=== PATIENT | male | born 1955 | race American Indian/Alaskan Native ===

== ENCOUNTER 2018-10-14 08:40 | Emergency (ER) | payer MEDICAID ==
[2018-10-14] MEDS ORDERED: BRETHINE SUB-Q ONE (09:09)
--- NOTE | 2018-10-14 09:15 | Emergency Department Report ---
ED General Adult HPI - General Chief complaint: Chest Pain Stated complaint: CHEST PAIN/CATINA Time Seen by Provider: 10/14/18 08:56 Source: patient Mode of arrival: Ambulatory Limitations: No Limitations - History of Present Illness Initial comments: Patient is 63 years old male with no significant past medical history except for erectile dysfunction for which he is taking. Patient stated that he injected himself twice this morning and now presented to the ER with a priapism for the last 2 hours. Patient also added to triage nurse that he is having chest pain and shortness of breath. Patient stated that his chest pain and shortness of breath is related to his priapism. Patient denied any fever or chills. Severity scale (0 -10): 10 - Related Data Allergies Allergy/AdvReac Type Severity Reaction Status Date / Time ibuprofen [From Advil] Allergy Hives Verified 10/14/18 08:43 ED Review of Systems ROS: Stated complaint: CHEST PAIN/CATINA Other details as noted in HPI Comment: All other systems reviewed and negative Constitutional: denies: chills, fever Respiratory: shortness of breath. denies: cough, orthopnea Cardiovascular: chest pain Gastrointestinal: denies: abdominal pain, nausea, vomiting Neurological: denies: headache ED Past Medical Hx - Past Medical History Hx Hypertension: Yes Hx Diabetes: Yes - Surgical History Additional Surgical History: Pranav Shoulder - Social History Smoking Status: Never Smoker Substance Use Type: None ED Physical Exam - General Limitations: No Limitations General appearance: alert, in no apparent distress, anxious - Head Head exam: Present: atraumatic, normocephalic, normal inspection - Eye Eye exam: Present: normal appearance - ENT ENT exam: Present: normal exam, normal orophraynx, mucous membranes moist - Neck Neck exam: Present: normal inspection, full ROM. Absent: tenderness, meningismus, lymphadenopathy, thyromegaly - Respiratory Respiratory exam: Present: normal lung sounds bilaterally - Cardiovascular Cardiovascular Exam: Present: regular rate, normal rhythm, normal heart sounds - GI/Abdominal GI/Abdominal exam: Present: soft, normal bowel sounds. Absent: distended, tenderness, guarding, rebound, rigid - exam: Present: other (Priapism). Absent: testicular tenderness, urethral discharge, scrotal swelling, vertical testicular lie, circumcision External exam: Absent: erythema, swelling, lesions, lacerations, ecchymosis, bleeding - Extremities Exam Extremities exam: Present: normal inspection - Neurological Exam Neurological exam: Present: alert, oriented X3, CN II-XII intact, normal gait - Skin Skin exam: Present: warm, intact, normal color ED Course Vital Signs 10/14/18 08:47 Temperature 97.5 F L Pulse Rate 100 H Respiratory 18 Rate Blood Pressure 132/88 O2 Sat by Pulse 99 Oximetry - Procedure Description Procedures done: Aspiration of priapism - Nerve Block Consent Obtained: written consent Time Out Performed: Yes Local Anesthetic Used: Lidocaine 2% Nerve Blocks: other ( pudendal nerve) Procedure Successful: Yes Complications: none Patient Tolerated Procedure: well, no complications ED Medical Decision Making - Lab Data Result diagrams: 10/14/18 09:23 10/14/18 09:23 - EKG Data -: EKG Interpreted by Me EKG shows normal: sinus rhythm Rate: normal - EKG Data Interpretation: no acute changes - Radiology Data Radiology results: report reviewed Chest x-ray is negative for acute finding. - Medical Decision Making Patient is 63 years old male with no significant past medical history except for erectile dysfunction for which he is taking. Patient stated that he injected himself twice this morning and now presented to the ER with a priapism for the last 2 hours. Patient also added to triage nurse that he is having chest pain and shortness of breath. Patient stated that his chest pain and shortness of breath is related to his priapism. Patient denied any fever or chills. Started with his medical therapy for this including terbutaline subcutaneous, pseudoephedrine tablets and one 20 mg with no improvement. Under aseptic technique, I aspirated 144 ml of blood. Patient stated that he is feeling much better. No evidence of priapism anymore. Patient observed in the emergency room after the procedure, no complications. Critical care attestation.: If time is entered above; I have spent that time in minutes in the direct care of this critically ill patient, excluding procedure time. ED Disposition Clinical Impression: Chest pain, Priapism Disposition: -01 TO HOME OR SELFCARE Is pt being admited?: No Condition: Stable Instructions: Chest Pain (ED), Priapism (ED) Referrals: OBINNA ROLLE MD [Staff Physician] - 3-5 Days
--- NOTE | 2018-10-14 09:33 | XRay Report ---
PROCEDURE: XR CHEST 1V AP TECHNIQUE: Single frontal view of the chest HISTORY: Chest Pain COMPARISONS: None. FINDINGS: The cardiomediastinal silhouette is normal in appearance. The lungs are clear without focal consolidation. No pleural effusion or pneumothorax. No acute bony or soft tissue abnormality. IMPRESSION: No acute cardiopulmonary disease. This document is electronically signed by Lana Cabral MD., October 14 2018 09:31:56 AM ET
[2018-10-14 09:34] LABS: Eosinophils # (Auto) 0.1 K/mm3 (0.0-0.4); Eosinophils % (Auto) 1.2 % (0.0-4.3); Hematocrit 34.8 % (35.5-45.6); Hemoglobin 12.1 gm/dl (11.8-15.2); Lymphocytes # (Auto) 1.8 K/mm3 (1.2-5.4); Lymphocytes % (Auto) 40.3 % (13.4-35.0); Mean Corpuscular HGB Conc 35 % (32-34); Mean Corpuscular Volume 96 fl (84-94); Monocytes # (Auto) 0.4 K/mm3 (0.0-0.8); Monocytes % (Auto) 8.4 % (0.0-7.3); Platelet Count 372 K/mm3 (140-440); Red Blood Count 3.63 M/mm3 (3.65-5.03); Red Cell Distribution Width 13.2 % (13.2-15.2)
[2018-10-14 09:56] LABS: BUN/Creatinine Ratio 14; Blood Urea Nitrogen 15 mg/dL (9-20); Calcium 9.1 mg/dL (8.4-10.2); Hemolysis Index 20
[2018-10-14] MEDS ORDERED: SUDAFED PO ONE ×2 (10:00)
[2018-10-14] MEDS ORDERED: NEO SYNEPHRINE/NS Syringe(OR USE) IV ONE (10:00)
[2018-10-14] MEDS ORDERED: XYLOCAINE 2% INFILTRATI ONE ×2 (10:41→10:42)
[2018-10-14 12:42] VITALS: BP 112/80
== END 2018-10-14 12:15 | disposition home or self-care (01) ==
LOC: ED 08:40
DX: N48.30 Priapism, unspecified (principal); R07.89 Other chest pain; I10 Essential (primary) hypertension; E11.9 Type 2 diabetes mellitus without complications; Z88.5 Allergy status to narcotic agent
CPT/HCPCS: 36415; 54220; 71045; 80048; 84484; 85025; 93005; 93010; 96372; 99284; J3105; J2370

== ENCOUNTER 2019-05-21 09:23 | Observation (INO) | payer MEDICAID ==
[2019-05-21 10:00] LABS: Eosinophils # (Auto) 0.2 K/mm3 (0.0-0.4); Eosinophils % (Auto) 3.4 % (0.0-4.3); Hematocrit 37.5 % (35.5-45.6); Hemoglobin 12.8 gm/dl (11.8-15.2); Lymphocytes # (Auto) 2.3 K/mm3 (1.2-5.4); Lymphocytes % (Auto) 49.5 % (13.4-35.0); Mean Corpuscular HGB Conc 34 % (32-34); Mean Corpuscular Volume 95 fl (84-94); Monocytes # (Auto) 0.5 K/mm3 (0.0-0.8); Monocytes % (Auto) 10.5 % (0.0-7.3); Platelet Count 324 K/mm3 (140-440); Red Blood Count 3.96 M/mm3 (3.65-5.03); Red Cell Distribution Width 12.8 % (13.2-15.2)
[2019-05-21 10:11] LABS: INR 0.95 (0.87-1.13); Partial Thromboplastin Time 31.1 Sec. (24.2-36.6)
[2019-05-21 10:13] LABS: Thrombin Time 16.5 Sec. (15.1-19.6)
[2019-05-21 10:22] LABS: BUN/Creatinine Ratio 18; Blood Urea Nitrogen 21 mg/dL (9-20); Calcium 9.8 mg/dL (8.4-10.2); Hemolysis Index 5
--- NOTE | 2019-05-21 10:42 | Emergency Department Report ---
HPI - General Chief Complaint: Neuro Symptoms/Deficit Time Seen by Provider: 05/21/19 10:26 - HPI HPI: Room 5 Patient is a 63-year-old male presenting with the chief complaint of "mouth twisting." The patient states he noticed swelling to the right side of his mouth and left facial droop for the past 2 days. Patient states he's had dysarthria since yesterday. Patient denies numbness or weakness. ED Past Medical Hx - Past Medical History Previous Medical History?: Yes Hx Hypertension: Yes Hx Diabetes: Yes - Surgical History Past Surgical History?: Yes Additional Surgical History: Pranav Shoulder - Family History Family history: no significant - Social History Smoking Status: Current Every Day Smoker (1/2 pack per day) Substance Use Type: None (denies illicit drug use) - Medications Home Medications: Home Medications Medication Instructions Recorded Confirmed Last Taken Type ALPRAZolam [Alprazolam] 2 mg PO TID PRN 05/21/19 05/21/19 Unknown History ARIPiprazole [Abilify] 30 mg PO DAILY 05/21/19 05/21/19 Unknown History AtorvaSTATin [Lipitor] 40 mg PO QHS 05/21/19 05/21/19 Unknown History Loratadine [Claritin] 10 mg PO DAILY 05/21/19 05/21/19 Unknown History Metformin HCl [metFORMIN] 1,000 mg PO BID 05/21/19 05/21/19 Unknown History Montelukast Sodium [Singulair] 4 mg PO DAILY 05/21/19 05/21/19 Unknown History Omeprazole 40 mg PO BID 05/21/19 05/21/19 Unknown History Oxycodone HCl [roxiCODONE] 30 mg PO QID PRN 05/21/19 05/21/19 Unknown History Sertraline [Zoloft] 100 mg PO QDAY 05/21/19 05/21/19 Unknown History amLODIPine 10 mg PO QHS 05/21/19 05/21/19 Unknown History glipiZIDE [Glucotrol] 10 mg PO QHS 05/21/19 05/21/19 Unknown History hydroCHLOROthiazide [HCTZ] 25 mg PO QDAY 05/21/19 05/21/19 Unknown History risperiDONE [RisperDAL] 4 mg PO DAILY 05/21/19 05/21/19 Unknown History ED Review of Systems ROS: Stated complaint: MOUTH TWISTED Other details as noted in HPI Constitutional: weakness Eyes: denies: eye pain ENT: denies: throat pain Respiratory: no symptoms reported Cardiovascular: denies: chest pain Endocrine: no symptoms reported Gastrointestinal: denies: abdominal pain Genitourinary: denies: dysuria Musculoskeletal: denies: back pain Neurological: other (facial asymmetry) Physical Exam - Physical Exam Physical Exam: GENERAL: The patient is well-developed well-nourished male lying on stretcher not appearing to be in acute distress. Left facial droop present HEENT: Normocephalic. Atraumatic. Extraocular motions are intact. Patient has moist mucous membranes. NECK: Supple. Trachea midline CHEST/LUNGS: Clear to auscultation. There is no respiratory distress noted. HEART/CARDIOVASCULAR: Regular. There is no tachycardia. There is no gallop rub or murmur. ABDOMEN: Abdomen is soft, nontender. Patient has normal bowel sounds. There is no abdominal distention. SKIN: There is no rash. There is no edema. There is no diaphoresis. NEURO: The patient is awake, alert, and oriented. The patient is cooperative. The patient has a left facial droop. Otherwise cranial nerves II through XII grossly intact. Patient able to hold either arm 45 angle. Patient exhibits slight difficulty holding right lower extremity at 30 angle from the but he is able to prevent it from touching the ground. Patient able to hold left lower extremity at 30 angle for full 10 second count. The patient has normal speech and gait. NIHSS= 3 MUSCULOSKELETAL: There is no evidence of acute injury. ED Medical Decision Making - Lab Data Result diagrams: 05/21/19 09:47 05/21/19 09:47 - EKG Data -: EKG Interpreted by Me EKG shows normal: sinus rhythm Rate: normal - EKG Data When compared to previous EKG there are: previous EKG unavailable Interpretation: other (no ischemic changes seen) - Radiology Data Radiology results: report reviewed (CT head), image reviewed (CT head) [facility] [address] [place] [address] Cat Scan Report Signed Patient: REJI ROTHMAN MR#: [id number] : 1955 Acct:[id number] Age/Sex: 63 / M ADM Date: 05/21/19 Loc: ED Attending Dr: Nirav crook Physician: LATRICIA GOLDMAN MD Date of Service: 05/21/19 Procedure(s): CT head/brain wo con Accession Number(s): [id number] cc: LATRICIA GOLDMAN MD CT head without contrast INDICATION : neuro deficits <6hrs or sx present upon awakening. Right-sided weakness and facial droop since yesterday TECHNIQUE: Axial imaging performed from the skull apex through the skull base without the use of contrast. All CT scans at this location are performed using CT dose reduction for ALARA by means of automated exposure control. COMPARISON: None FINDINGS: Parenchyma: No acute intracranial hemorrhage or parenchymal abnormality. Ventricles: Ventricles are normal in size and appear symmetric. Soft tissues: Soft tissues including the orbits appear normal. Bones: No acute osseous abnormality. Sinuses: Sinuses and mastoid air cells are clear. IMPRESSION: No acute abnormality. Signer Name: Jan Dean MD Signed: 05/21/2019 11:25 AM Workstation Name: [id number] Transcribed By: JW Dictated By: Jan Dean MD Electronically Authenticated By: Jan Dean MD Signed Date/Time: 05/21/19 1125 DD/ 1124 TD/TT: - Differential Diagnosis CVA, Perez's palsy Critical care attestation.: If time is entered above; I have spent that time in minutes in the direct care of this critically ill patient, excluding procedure time. ED Disposition Clinical Impression: CVA (cerebral vascular accident) Disposition: 09 OP ADMIT IP TO THIS HOSP Is pt being admited?: Yes Does the pt Need Aspirin: Yes Condition: Fair Referrals: PRIMARY CARE,MD [Primary Care Provider] - 3-5 Days Time of Disposition: 11:58 (Hospitalist paged (Dr Ramirez))
--- NOTE | 2019-05-21 11:30 | Cat Scan Report ---
CT head without contrast INDICATION : neuro deficits <6hrs or sx present upon awakening. Right-sided weakness and facial droo p since yesterday TECHNIQUE: Axial imaging performed from the skull apex through the skull base without the use of con trast. All CT scans at this location are performed using CT dose reduction for ALARA by means of aut omated exposure control. COMPARISON: None FINDINGS: Parenchyma: No acute intracranial hemorrhage or parenchymal abnormality. Ventricles: Ventricles are normal in size and appear symmetric. Soft tissues: Soft tissues including the orbits appear normal. Bones: No acute osseous abnormality. Sinuses: Sinuses and mastoid air cells are clear. IMPRESSION: No acute abnormality. Signer Name: aJn Dean MD Signed: 05/21/2019 11:25 AM Workstation Name: [id number]
[2019-05-21] MEDS ORDERED: MORPHINE 4 MG/1 ML INJ IV ONE (11:47)
[2019-05-21] MEDS ORDERED: ONDANSETRON 4 MG/2 ML INJ IV ONE (11:48)
[2019-05-21] MEDS ORDERED: ASPIRIN 325 MG TAB PO ONE (11:59)
--- NOTE | 2019-05-21 12:00 | History and Physical Report ---
History of Present Illness Chief complaint: My mouth feels twisted History of present illness: 63 YO Male with Nicotine Dependence, Cervical DJD presents to ED for evaluation. Pt states that he has experienced Left side facial droop and difficulty speaking over the past 2 days with persistent symptoms over the same time frame. Pt states that his noticed the symptoms 2 days ago. Pt transported to [facility] via private vehicle. Pt seen and evaluated in ED and found to have focal neurologic deficit, but is outside therapeutic window for TPA. Pt denies fever, chills, CP, Palpitations, NVD, Trauma, Syncope, Dizziness, Skin Rash, or recent ill contacts. Pt placed in observation status and admitted to medical floor. N eurology consulted in ED. Pt initiated on CVA protocol. Past History Past Medical History: other (Cervical DJD) Past Surgical History: No surgical history, Other (reviewed) Social history: single, smoking Family history: hypertension Medications and Allergies Allergies Allergy/AdvReac Type Severity Reaction Status Date / Time gabapentin Allergy Unknown Verified 05/21/19 10:32 ibuprofen [From Advil] Allergy Hives Verified 10/14/18 08:43 Home Medications Medication Instructions Recorded Confirmed Last Taken Type ALPRAZolam [Alprazolam] 2 mg PO TID PRN 05/21/19 05/21/19 Unknown History ARIPiprazole [Abilify] 30 mg PO DAILY 05/21/19 05/21/19 Unknown History AtorvaSTATin [Lipitor] 40 mg PO QHS 05/21/19 05/21/19 Unknown History Loratadine [Claritin] 10 mg PO DAILY 05/21/19 05/21/19 Unknown History Metformin HCl [metFORMIN] 1,000 mg PO BID 05/21/19 05/21/19 Unknown History Montelukast Sodium [Singulair] 4 mg PO DAILY 05/21/19 05/21/19 Unknown History Omeprazole 40 mg PO BID 05/21/19 05/21/19 Unknown History Oxycodone HCl [roxiCODONE] 30 mg PO QID PRN 05/21/19 05/21/19 Unknown History Sertraline [Zoloft] 100 mg PO QDAY 05/21/19 05/21/19 Unknown History amLODIPine 10 mg PO QHS 05/21/19 05/21/19 Unknown History glipiZIDE [Glucotrol] 10 mg PO QHS 05/21/19 05/21/19 Unknown History hydroCHLOROthiazide [HCTZ] 25 mg PO QDAY 05/21/19 05/21/19 Unknown History risperiDONE [RisperDAL] 4 mg PO DAILY 05/21/19 05/21/19 Unknown History Review of Systems Constitutional: no weight loss, no weight gain, no fever, no chills Ears, nose, mouth and throat: no ear pain, no ear discharge, no tinnitis, no d ecreased hearing, no nose pain, no nasal congestion Cardiovascular: no chest pain, no orthopnea, no edema, no lightheadedness Respiratory: no cough, no excessive sputum, no hemoptysis, no shortness of breath Gastrointestinal: no nausea, no vomiting, no diarrhea, no constipation, no change in bowel habits Genitourinary Male: no hematuria, no flank pain, no urinary hesitancy, no nocturia, no incontinence Rectal: no pain, no incontinence, no bleeding Musculoskeletal: no neck stiffness, no neck pain, no shooting arm pain, no arm numbness/tingling, no leg numbness/tingling Integumentary: no rash, no pruritis, no redness, no sores, no wounds Neurological: lack of coordination, aphasia, change in speech, no transient paralysis, no paralysis, no parathesias, no numbness, no tingling Psychiatric: no anxiety, no change in sleep habits, no sleep disturbances, no hypersomnia, no change in appetite, no suicidal ideation, no disorientation Endocrine: no heat intolerance, no polyphagia, no excessive thirst, no polydipsia, no polyuria Hematologic/Lymphatic: no easy bruising, no easy bleeding, no lymphadenopathy, no lymphedema Allergic/Immunologic: no urticaria, no allergic rhinitis, no wheezing, no persistent infections, no anaphylaxis Exam - Constitutional Vitals: Temp Pulse Resp BP Pulse Ox 98.1 F 81 20 131/81 98 05/21/19 10:32 05/21/19 10:32 05/21/19 10:32 05/21/19 10:32 05/21/19 10:32 General appearance: Present: mild distress - EENT Eyes: Present: PERRL ENT: hearing intact, clear oral mucosa - Neck Neck: Present: supple, normal ROM - Respiratory Respiratory effort: normal Respiratory: bilateral: CTA - Cardiovascular Heart Sounds: Present: S1 & S2. Absent: rub, click - Extremities Extremities: pulses symmetrical, No edema Peripheral Pulses: within normal limits - Abdominal General gastrointestinal: Present: soft, non-tender, non-distended, normal bowel sounds Male genitourinary: Present: normal - Integumentary Integumentary: Present: clear, warm, dry - Musculoskeletal Musculoskeletal: left sided weakness - Psychiatric Psychiatric: appropriate mood/affect, intact judgment & insight - Neurologic Neurologic: CNII-XII intact, moves all extremities Results - Labs CBC & Chem 7: 05/21/19 09:47 05/21/19 09:47 Labs: Abnormal lab results 05/21/19 05/21/19 Range/Units 09:47 09:47 MCV 95 H (84-94) fl RDW 12.8 L (13.2-15.2) % Lymph % (Auto) 49.5 H (13.4-35.0) % [place] % (Auto) 10.5 H (0.0-7.3) % Seg Neutrophils % 35.6 L (40.0-70.0) % Seg Neutrophils # 1.6 L (1.8-7.7) K/mm3 BUN 21 H (9-20) mg/dL Glucose 221 H (75-100) mg/dL Assessment and Plan - Patient Problems (1) CVA (cerebral vascular accident) Current Visit: Yes Status: Acute Plan to address problem: CVA Protocol: CT Head, Neuro check, Carotid doppler, Seizure precautions, antiplatelet therapy, Echo, Neurology consulted, Further testing as per neurology team. (2) DJD (degenerative joint disease), cervical Current Visit: Yes Status: Acute Qualifiers: Spinal osteoarthritis complication: with radiculopathy Qualified Code(s): M47.22 - Other spondylosis with radiculopathy, cervical region Plan to address problem: supportive care, Physical therapy, Outpatient ortho/spine F/U care. (3) DVT prophylaxis Current Visit: Yes Status: Acute Plan to address problem: SCD to BLE while in bed, Pt ambulatory
[2019-05-21] MEDS ORDERED: ACETAMINOPHEN 325 MG TAB PO PRN (12:08)
[2019-05-21] MEDS ORDERED: MAGNESIUM HYDROXIDE (MOM) ORAL LIQD UDC PO PRN (12:08)
[2019-05-21] MEDS ORDERED: ONDANSETRON 4 MG/2 ML INJ IV PRN (12:08)
[2019-05-21] MEDS ORDERED: PROMETHAZINE 25 MG RECT SUPP PR PRN (12:08)
[2019-05-21] MEDS ORDERED: METOCLOPRAMIDE 10 MG TAB PO PRN (12:08)
[2019-05-21] MEDS ORDERED: DEXTROSE 50% IN WATER (25GM) 50 ML SYRINGE IV PRN (12:10)
--- NOTE | 2019-05-21 14:42 | Vascular Lab Report ---
"DUPLEX DOPPLER ULTRASOUND CAROTID, BILATERAL INDICATION: Stroke. Right sided weakness. COMPARISON: CT head without contrast performed earlier today. FINDINGS: RIGHT CAROTID: No significant atherosclerotic plaque. CCA velocity: 65.6 cm/sec. ICA peak systolic velocity: 67.5 cm/sec. ICA/CCA PSV Ratio: 1.03. Right Vertebral Artery: Antegrade flow. LEFT CAROTID: No significant atherosclerotic plaque. CCA velocity: 79.2 cm/sec. ICA peak systolic velocity: 70.5 cm/sec. ICA/CCA PSV Ratio: 0.9. Left Vertebral Artery: Antegrade flow. IMPRESSION: 1. Right Internal Carotid Artery: Normal. 2. Left Internal Carotid Artery: Normal. Velocity criteria are extrapolated from diameter data as defined by the Society of Radiologists in Ul trasound Consensus Conference, Radiology 2003; 229;340-346. Degree of || ICA PSV || Plaque || ICA/CCA Stenosis (%) || (cm/sec) || estimate (%) || PSV Ratio - Normal...............<125..............None.................<2.0 - <50....................<125..............<50....................<2.0 - 50-69................125-230.........>50....................2.0-4.0 - >70 but <100....>230..............>50....................>4.0 - Near...................High, low, .....visible................variable occlusion or none - Total...................None.............visible;................N/A occlusion no lumen Signer Name: Juan Funes MD Signed: 05/21/2019 2:37 PM Workstation Name: [id number]"
--- NOTE | 2019-05-21 17:38 | Consultation ---
History of Present Illness Consult date: 05/21/19 Chief complaint: left facial droop History of present illness: This is a 63 YO M who presented to the ED with left facial droop for several day s. Denied weakness or numbness. Also has trouble wrinkling forehead and closing left eye. Past History Past Medical History: other (Cervical DJD, diabetes) Past Surgical History: No surgical history, Other (reviewed) Social history: single, smoking Family history: hypertension Medications and Allergies Allergies Allergy/AdvReac Type Severity Reaction Status Date / Time gabapentin Allergy Unknown Verified 05/21/19 10:32 ibuprofen [From Advil] Allergy Hives Verified 10/14/18 08:43 Home Medications Medication Instructions Recorded Confirmed Last Taken Type ALPRAZolam [Alprazolam] 2 mg PO TID PRN 05/21/19 05/21/19 Unknown History ARIPiprazole [Abilify] 30 mg PO DAILY 05/21/19 05/21/19 Unknown History AtorvaSTATin [Lipitor] 40 mg PO QHS 05/21/19 05/21/19 Unknown History Loratadine [Claritin] 10 mg PO DAILY 05/21/19 05/21/19 Unknown History Metformin HCl [metFORMIN] 1,000 mg PO BID 05/21/19 05/21/19 Unknown History Montelukast Sodium [Singulair] 4 mg PO DAILY 05/21/19 05/21/19 Unknown History Omeprazole 40 mg PO BID 05/21/19 05/21/19 Unknown History Oxycodone HCl [roxiCODONE] 30 mg PO QID PRN 05/21/19 05/21/19 Unknown History Sertraline [Zoloft] 100 mg PO QDAY 05/21/19 05/21/19 Unknown History amLODIPine 10 mg PO QHS 05/21/19 05/21/19 Unknown History glipiZIDE [Glucotrol] 10 mg PO QHS 05/21/19 05/21/19 Unknown History hydroCHLOROthiazide [HCTZ] 25 mg PO QDAY 05/21/19 05/21/19 Unknown History risperiDONE [RisperDAL] 4 mg PO DAILY 05/21/19 05/21/19 Unknown History Active Meds: Active Medications Acetaminophen (Tylenol) 650 mg PO Q4H PRN PRN Reason: Pain, Mild (1-3) Bisacodyl (Dulcolax) 10 mg GA QDAY PRN PRN Reason: Constipation Dextrose (D50w (25gm) Syringe) 50 ml IV Q30MIN PRN; Protocol PRN Reason: Hypoglycemia Insulin Human Lispro (Humalog) 0 unit SUB-Q Q6HR VALERIY; Protocol Magnesium Hydroxide (Milk Of Magnesia) 30 ml PO Q4H PRN PRN Reason: Constipation Metoclopramide HCl (Reglan) 10 mg PO Q6H PRN PRN Reason: Nausea And Vomiting Ondansetron HCl (Zofran) 4 mg IV Q8H PRN PRN Reason: Nausea And Vomiting Pravastatin Sodium (Pravachol) 20 mg PO QHS VALERIY Promethazine HCl (Phenergan) 25 mg GA Q6H PRN PRN Reason: Nausea And Vomiting Sodium Chloride (Sodium Chloride Flush Syringe 10 Ml) 10 ml IV PRN PRN PRN Reason: LINE FLUSH Review of Systems Neurological: other (facial droop) Physical Examination - Vital Signs Vital Signs: Vital Signs Temp Pulse Resp BP Pulse Ox 98.1 F 81 20 131/81 98 05/21/19 10:32 05/21/19 10:32 05/21/19 10:32 05/21/19 10:32 05/21/19 10:32 - Constitutional General appearance: comfortable - EENT EENT: Present: PERRL, mucous membranes moist - Respiratory Respiratory: Present: lungs clear - Cardiovascular Cardiovascular: Present: regular rate - Gastrointestinal Gastrointestinal: Present: normoactive bowel sounds - Integumentary Integumentary: Present: normal - Neurologic Cranial nerve examination: PERRL, EOMI, V1/V2/V3 grossly intact, tongue midline, facial droop Speech examination: intact Sensorimotor examination: intact Detailed motor examination: grossly full strength in Motor examination - right side: 5/5: biceps, triceps, wrist flexion, wrist extension, mortgage accounting clerk, hip flexors, knee extensors, dorsiflexion, toe extension (EHL), plantarflexion Motor examination - left side: 5/5: biceps, triceps, wrist flexion, wrist extension, mortgage accounting clerk, hip flexors, knee extensors, dorsiflexion, toe extension (EHL), plantarflexion Incision: tenderness Reflexes: 1+: ankle, bicep, knee, tricep - Psychiatric Psychiatric: Present: mood/affect appropriate Results - Laboratory Findings CBC and BMP: 11/18/19 09:47 05/21/19 09:47 Abnormal Lab Findings: Abnormal Labs 05/21/19 05/21/19 05/21/19 09:47 09:47 13:59 MCV 95 H RDW 12.8 L Lymph % (Auto) 49.5 H [place] % (Auto) 10.5 H Seg Neutrophils % 35.6 L Seg Neutrophils # 1.6 L BUN 21 H Glucose 221 H POC Glucose 119 H - Diagnostic Findings Additional findings: CT head- chronic changes, nothing acute Assessment and Plan 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
[2019-05-21] MEDS: valACYclovir 500 MG TAB PO SCH (18:19)
[2019-05-21] MEDS: INSULIN LISPRO 100 UNIT/ML SUB-Q SCH ×2 (18:20→23:53)
[2019-05-21] MEDS ORDERED: PRAVASTATIN 20 MG TAB PO SCH (22:00)
[2019-05-21] MEDS ORDERED: glipiZIDE 10 MG TAB PO SCH (22:00)
[2019-05-21] MEDS: NICOTINE 14 MG/24 HR PATCH TD SCH (22:21)
[2019-05-22] MEDS ORDERED: INSULIN LISPRO 100 UNIT/ML SUB-Q SCH (07:30)
[2019-05-22] MEDS: NICOTINE 14 MG/24 HR PATCH TD SCH (09:37)
[2019-05-22] MEDS: valACYclovir 500 MG TAB PO SCH (09:37)
[2019-05-22] MEDS ORDERED: predniSONE 20 MG TAB PO SCH (10:00)
[2019-05-22] MEDS ORDERED: LORATADINE (NF) 10 MG TAB PO SCH (10:00)
[2019-05-22 11:20] LABS: Chol/HDL Ratio 3.94 %
[2019-05-22] MEDS ORDERED: FLU VACC QUAD 2019-20 (3 YR UP)/PF 60 MCG/0.5 ML SYRINGE IM ONE (12:00)
--- NOTE | 2019-05-22 12:11 | Discharge Summary ---
Providers - Providers Date of Admission: 05/21/19 12:08 Date of discharge: 05/22/19 Attending physician: VANESSA SIMON 05/21/19 11:21 Speech Therapy Evaluation and Treat [CONS] Routine Reason For Exam: failed bedside swallow 05/21/19 12:08 Occupational Therapy Evaluate and Treat [CONS] Routine Comment: Reason For Exam: Neuro deficits Physical Therapy Evaluation and Treat [CONS] Routine Comment: Reason For Exam: Neuro deficits 05/21/19 14:07 Consult to Physician [CONS] Routine Comment: Consulting Provider: REN TINAJERO Physician Instructions: Reason For Exam: CVA/[place] Palsy Primary care physician: FERMENTATION OPERATOR Hospitalization Condition: Stable Hospital course: Patient is a 63 YO Male with Nicotine Dependence, NIDDM and Cervical DJD Discharge Diagnoses: Ruled out CVA, Perez's palsy per Neurology DJD, pt showed me a picture of cervical spine in an attempt to obtain narcotic pain meds: return to his outpatient doctors for further care Chronic pain syndrome, he just received 120 tabs of oxycodone on 05/07/[address] Jesús Steiner Jr per [place] structurer aware. Disposition: DC-01 TO HOME OR SELFCARE Time spent for discharge: 33 minutes Core Measure Documentation - Palliative Care Palliative Care/ Comfort Measures: Not Applicable - Core Measures Any of the following diagnoses?: none - VTE Discharge Requirements Deep Vein Thrombosis/Pulmonary Embolism Present on Admission: No Has pt received <5 days of overlap therapy or INR<2.0: No Anticoagulant overlap therapy prescribed at discharge: No Contraindication No Overlap Therapy order at DC: Not Indicated Exam - Physical Exam Narrative exam: Gen: WDWN, NAD, Awake, Alert, Orientated HEENT: NCAT, EOMI, PERRL, OP Clear Neck: supple, no adenopathy, no thyromegaly, no JVD CVS/Heart: RRR, normal S1S2, pulses present bilaterally Chest/Lungs: CTA B, Symmetrical chest expansion, good air entry bilaterally GI/Abdomen: soft, NTND, good bowel sounds, no guarding or rebound /Bladder: no suprapubic tenderness, no CVA or paraspinal tenderness Extermity/Skin: no c/c/e, no obvious rash MSK: FROM x 4 Neuro: CN 2-12 grossly intact, no new focal deficits Psych: calm - Constitutional Vitals: Temp Pulse Resp BP Pulse Ox 97.7 F 86 20 124/79 96 05/22/19 04:31 05/22/19 04:31 05/22/19 11:08 05/22/19 04:31 05/22/19 11:08 Plan Activity: other (no strenous activity unless cleared by PCP) Diet: low salt, diabetic Special Instructions: record daily BP diary, record blood sugar diary Follow up with: REINA ESCOBAR MD [Staff Physician] - 7 Days [facility] [Provider Group] - 7 Days Prescriptions: predniSONE [Deltasone] 1 dose PO QDAY #64 tab valACYclovir [Valtrex] 2 tab PO TID 7 Days tab
[2019-05-22] MEDS ORDERED: valACYclovir 500 MG TAB PO SCH (14:00)
[2019-05-22 14:56] VITALS: BP 137/79
== END 2019-05-22 14:30 | disposition home or self-care (01) ==
LOC: ED 09:23 → 3A 12:08
PROVIDERS: ADMIT Internal Medicine; ATTEND Internal Medicine
DX: I63.9 Cerebral infarction, unspecified (principal); M47.22 Other spondylosis with radiculopathy, cervical region; I10 Essential (primary) hypertension; E11.9 Type 2 diabetes mellitus without complications; F17.210 Nicotine dependence, cigarettes, uncomplicated; Z71.6 Tobacco abuse counseling; Z79.84 Long term (current) use of oral hypoglycemic drugs; Z79.899 Other long term (current) drug therapy; Z88.8 Allergy status to other drugs, medicaments and biological substances
CPT/HCPCS: 36415; 70450; 80048; 80061; 82962; 84484; 85025; 85610; 85670; 85730; 92610; 93005; 93010; 93306; 93880; 96374; 96375; 99284; 99406; A9270; G0378; J2270; J2405; J7512; 90686

== ENCOUNTER 2019-06-06 16:11 | Emergency (ER) | payer MEDICAID ==
[2019-06-06 17:14] VITALS: BP 139/86
--- NOTE | 2019-06-06 17:22 | Emergency Department Report ---
Blank Doc - Documentation Documentation: 63-year-old male that stated symptoms of left eye pain. Patient was seen a few weeks ago and was diagnosed with [place] Palsy. Stated symptoms are the same and did not change but the only new symptom he has is the burning sensation to the left eye. Exam: Left facial drooping with trouble wrinkling forehead and closing left eye. Denies any headache. Denies any other symptoms. This initial assessment/diagnostic orders/clinical plan/treatment(s) is/are subject to change based on patient's health status, clinical progression and re- assessment by fellow clinical providers in the ED. Further treatment and workup at subsequent clinical providers discretion. Patient/guardians urged not to elope from the ED as their condition may be serious if not clinically assessed and managed. Initial orders include: 1- Patient sent to [facility] for further evaluation and treatment 2- visual testing
[2019-06-06] MEDS ORDERED: TETRACAINE 0.5% OPHTH SOLN 4ML OU PRN (19:58)
[2019-06-06] MEDS ORDERED: HYDROcodone/ACETAMINOPHEN 5-325 MG TAB PO ONE (19:58)
[2019-06-06] MEDS ORDERED: predniSONE 20 MG TAB PO ONE (20:00)
[2019-06-06] MEDS ORDERED: FLUORESCEIN 1 MG STRIP OP ONE ×2 (20:07→20:09)
--- NOTE | 2019-06-06 21:51 | Emergency Department Report ---
ED Eye Problem HPI - General Chief complaint: Eye Problems Stated complaint: DIFFICULTY CLOSING L EYE Time Seen by Provider: 06/06/19 17:12 Source: patient Mode of arrival: Ambulatory Limitations: No Limitations - History of Present Illness Initial comments: Patient is a 63-year-old -Maldivian male with a history of hypertension and hyperlipidemia presents to the ED with complaint of acute onset persistent left eye pain and left facial drooping for the last 2 weeks. Patient states that he was diagnosed with Palomino's palsy about 2 weeks ago and has been taking Valtrex for a week and 10 mg of prednisone daily for 1 week. Patient states that he completed these medications 1 week ago but the left eye pain has been persistent. Patient also states that he was evaluated by his dairy technologist who advised him to continue using his eyedrops to hydrate his eyes. Patient states that the left eye pain and itching has been persistent and that he still has left facial palsy. Patient denies dizziness, headache, vision loss, fever, chills, cough, headache, abdominal pain, chest pain or shortness of breath. MD chief complaint: eye pain (left ), other (left) -: Sudden, week(s) (2) Onset Description: sudden, other (diagnosed with Palomino's Palsy) Location: left eye Place: home If Injury: none Eye Symptoms: burning, pain, itching Severity: severe Severity scale (0 -10): 7 If Pain, Quality: sharp, burning, aching Consistency: constant Context: other (Palomino's palsy) Associated Symptoms: none. denies: headache, neck pain, nausea/vomiting, cough, rhinorrhea, fever, shortness of breath Treatments Prior to Arrival: OTC eye drops - Related Data Home Medications Medication Instructions Recorded Confirmed Last Taken ALPRAZolam [Alprazolam] 2 mg PO TID PRN 05/21/19 05/21/19 Unknown ARIPiprazole [Abilify] 30 mg PO DAILY 05/21/19 05/21/19 Unknown AtorvaSTATin [Lipitor] 40 mg PO QHS 05/21/19 05/21/19 Unknown Loratadine [Claritin] 10 mg PO DAILY 05/21/19 05/21/19 Unknown Metformin HCl [metFORMIN] 1,000 mg PO BID 05/21/19 05/21/19 Unknown Montelukast Sodium [Singulair] 4 mg PO DAILY 05/21/19 05/21/19 Unknown Omeprazole 40 mg PO BID 05/21/19 05/21/19 Unknown Oxycodone HCl [roxiCODONE] 30 mg PO QID PRN 05/21/19 05/21/19 Unknown Sertraline [Zoloft] 100 mg PO QDAY 05/21/19 05/21/19 Unknown amLODIPine 10 mg PO QHS 05/21/19 05/21/19 Unknown glipiZIDE [Glucotrol] 10 mg PO QHS 05/21/19 05/21/19 Unknown hydroCHLOROthiazide [HCTZ] 25 mg PO QDAY 05/21/19 05/21/19 Unknown risperiDONE [RisperDAL] 4 mg PO DAILY 05/21/19 05/21/19 Unknown Previous Rx's Medication Instructions Recorded Last Taken Type predniSONE [Deltasone] 1 dose PO QDAY #64 tab 05/22/19 Unknown Rx Prednisone [predniSONE 10 mg 10 mg PO .TAPER #21 tab.ds.pk 06/06/19 Unknown Rx (6-Day Pack, 21 Tabs)] traMADoL [Ultram] 50 mg PO Q6HR PRN #12 tablet 06/06/19 Unknown Rx valACYclovir [Valtrex] 2 tab PO Q8H 7 Days #42 tab 06/06/19 Unknown Rx Allergies Allergy/AdvReac Type Severity Reaction Status Date / Time gabapentin Allergy Unknown Verified 05/21/19 10:32 ibuprofen [From Advil] Allergy Hives Verified 10/14/18 08:43 ED Review of Systems ROS: Stated complaint: DIFFICULTY CLOSING L EYE Other details as noted in HPI Constitutional: denies: chills, fever Eyes: eye pain (left eye), eye discharge (Left eye tearing), other (left facial palsy). denies: vision change ENT: denies: ear pain, throat pain Respiratory: denies: cough, orthopnea, shortness of breath, SOB with exertion, SOB at rest, wheezing Cardiovascular: denies: chest pain, palpitations, dyspnea on exertion, syncope, paroxysmal nocturnal dyspnea Endocrine: no symptoms reported. denies: flushing, intolerance to cold Gastrointestinal: denies: abdominal pain, nausea, vomiting, diarrhea, constipation, hematemesis Genitourinary: denies: urgency, dysuria Musculoskeletal: denies: back pain, joint swelling, arthralgia Skin: denies: rash, lesions Neurological: denies: headache, weakness, paresthesias, confusion, other Psychiatric: denies: anxiety, depression Hematological/Lymphatic: denies: easy bleeding, easy bruising ED Past Medical Hx - Past Medical History Previous Medical History?: Yes Hx Hypertension: Yes Hx Diabetes: Yes - Surgical History Past Surgical History?: No Additional Surgical History: Pranav Shoulder - Social History Smoking Status: Never Smoker Substance Use Type: None - Medications Home Medications: Home Medications Medication Instructions Recorded Confirmed Last Taken Type ALPRAZolam [Alprazolam] 2 mg PO TID PRN 05/21/19 05/21/19 Unknown History ARIPiprazole [Abilify] 30 mg PO DAILY 05/21/19 05/21/19 Unknown History AtorvaSTATin [Lipitor] 40 mg PO QHS 05/21/19 05/21/19 Unknown History Loratadine [Claritin] 10 mg PO DAILY 05/21/19 05/21/19 Unknown History Metformin HCl [metFORMIN] 1,000 mg PO BID 05/21/19 05/21/19 Unknown History Montelukast Sodium [Singulair] 4 mg PO DAILY 05/21/19 05/21/19 Unknown History Omeprazole 40 mg PO BID 05/21/19 05/21/19 Unknown History Oxycodone HCl [roxiCODONE] 30 mg PO QID PRN 05/21/19 05/21/19 Unknown History Sertraline [Zoloft] 100 mg PO QDAY 05/21/19 05/21/19 Unknown History amLODIPine 10 mg PO QHS 05/21/19 05/21/19 Unknown History glipiZIDE [Glucotrol] 10 mg PO QHS 05/21/19 05/21/19 Unknown History hydroCHLOROthiazide [HCTZ] 25 mg PO QDAY 05/21/19 05/21/19 Unknown History risperiDONE [RisperDAL] 4 mg PO DAILY 05/21/19 05/21/19 Unknown History predniSONE [Deltasone] 1 dose PO QDAY #64 tab 05/22/19 Unknown Rx Prednisone [predniSONE 10 mg 10 mg PO .TAPER #21 tab.ds.pk 06/06/19 Unknown Rx (6-Day Pack, 21 Tabs)] traMADoL [Ultram] 50 mg PO Q6HR PRN #12 tablet 06/06/19 Unknown Rx valACYclovir [Valtrex] 2 tab PO Q8H 7 Days #42 tab 06/06/19 Unknown Rx ED Physical Exam - General Limitations: No Limitations General appearance: alert, in no apparent distress - Head Head exam: Present: atraumatic, normocephalic, normal inspection - Eye Eye exam: Present: normal appearance, PERRL, EOMI. Absent: scleral icterus, conjunctival injection, nystagmus, periorbital swelling, periorbital tenderness Pupils: Present: normal accommodation - ENT ENT exam: Present: normal exam, normal orophraynx, mucous membranes moist, TM's normal bilaterally, normal external ear exam, other (left facial palsy) - Neck Neck exam: Present: normal inspection - Respiratory Respiratory exam: Present: normal lung sounds bilaterally. Absent: respiratory distress, wheezes, rales, rhonchi, chest wall tenderness, accessory muscle use, decreased breath sounds, prolonged expiratory - Cardiovascular Cardiovascular Exam: Present: regular rate, normal rhythm, normal heart sounds. Absent: systolic murmur, diastolic murmur, rubs, gallop - GI/Abdominal GI/Abdominal exam: Present: soft, normal bowel sounds. Absent: distended, guarding, hyperactive bowel sounds - Rectal Rectal exam: Present: deferred - Extremities Exam Extremities exam: Present: normal inspection, full ROM, normal capillary refill - Back Exam Back exam: Present: normal inspection, full ROM. Absent: CVA tenderness (L), muscle spasm, paraspinal tenderness, vertebral tenderness - Neurological Exam Neurological exam: Present: alert, oriented X3, CN II-XII intact, normal gait, reflexes normal - Psychiatric Psychiatric exam: Present: normal affect, normal mood - Skin Skin exam: Present: warm, dry, intact, normal color. Absent: rash ED Course Vital Signs 06/06/19 17:13 Temperature 98.2 F Pulse Rate 97 H Respiratory 18 Rate Blood Pressure 139/86 O2 Sat by Pulse 100 Oximetry ED Medical Decision Making - Medical Decision Making This is a 63-year-old male who presented to the ED with persistent left facial palsy for 2 weeks. Patient just completed a course of antiviral Valtrex and 10 mg of prednisone daily over 1 week ago for a recent diagnosis of Palomino's palsy. Patient complaint of left eye pain as a complication of Palomino's palsy. Patient is currently using eyedrops prescribed by his dairy technologist but states that the pain and tearing has been persistent. In the ED, patient is alert and oriented 3 and is not in distress. Tetracaine eyedrops were applied to the left eye and fluorescein dye applied and left eye evaluated and examined using a Freeman lamp for any abrasions or scratches. The left eye lamp exam was unremarkable. The patient's left eye pain is possibly from the fact that day eyelids are not fully close due to complication of Palomino's palsy. Patient was discharged home on pain medications already and advised to follow-up with his dairy technologist in 2 days for reevaluation. Patient also received high-dose steroid and another 1 week prescription of Valtrex. Patient was also advised to contact his primary care physician in 2 days for follow-up. Patient advised to return to the ED immediately if symptoms get worse. - Differential Diagnosis palomino's palsy; keratitis; left eye injury Critical care attestation.: If time is entered above; I have spent that time in minutes in the direct care of this critically ill patient, excluding procedure time. ED Disposition Clinical Impression: Left-sided Palomino's palsy, Acute left eye pain, Keratitis, left Disposition: DC-01 TO HOME OR SELFCARE Is pt being admited?: No Does the pt Need Aspirin: No Condition: Stable Instructions: Keratitis (ED), [place] Palsy (ED) Additional Instructions: Follow-up with the dairy technologist in 2-3 days for reevaluation. Contact your dairy technologist office first thing in the morning to schedule a follow-up appointment. Return to the ED immediately if symptoms get worse. Prescriptions: Prednisone [predniSONE 10 mg (6-Day Pack, 21 Tabs)] 10 mg PO .TAPER #21 tab.ds.pk traMADoL [Ultram] 50 mg PO Q6HR PRN #12 tablet PRN Reason: Pain valACYclovir [Valtrex] 2 tab PO Q8H 7 Days #42 tab Referrals: RACHELLE GARCIA [Other] - 3-5 Days Time of Disposition: 21:53 Print Language: MACEDONIAN
== END 2019-06-06 22:06 | disposition home or self-care (01) ==
LOC: ED 16:11
DX: G51.0 Bell's palsy (principal); H16.8 Other keratitis; I10 Essential (primary) hypertension; E11.9 Type 2 diabetes mellitus without complications; Z79.899 Other long term (current) drug therapy; Z88.6 Allergy status to analgesic agent
CPT/HCPCS: 99283; J7512

== ENCOUNTER 2019-08-28 23:18 | Emergency (ER) | payer MEDICAID ==
[2019-08-29] MEDS ORDERED: ACETAMINOPHEN 325 MG TAB PO ONE (02:18)
--- NOTE | 2019-08-29 02:40 | XRay Report ---
AP AND LATERAL VIEWS RIGHT TIBIA AND FIBULA INDICATION: swelling over the distal fibular region. COMPARISON: No relevant prior imaging study available. FINDINGS: No acute skeletal abnormality. There is mild soft tissue swelling adjacent to the distal fibula later ally. No soft tissue gas or foreign bodies. IMPRESSION: 1. Mild distal calf soft tissue swelling. No acute skeletal abnormality. Signer Name: Leland Hauser MD Signed: 08/29/2019 2:35 AM Workstation Name: [id number]
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
[2019-08-29 03:49] VITALS: BP 133/78
== END 2019-08-29 03:20 | disposition home or self-care (01) ==
LOC: ED 23:18
DX: L03.115 Cellulitis of right lower limb (principal); I10 Essential (primary) hypertension; E11.9 Type 2 diabetes mellitus without complications; E78.00 Pure hypercholesterolemia, unspecified; F17.200 Nicotine dependence, unspecified, uncomplicated; Z79.899 Other long term (current) drug therapy; Z88.6 Allergy status to analgesic agent; Z88.8 Allergy status to other drugs, medicaments and biological substances

== ENCOUNTER 2019-10-15 16:17 | Emergency (ER) | payer MEDICAID ==
[2019-10-15 16:30] VITALS: BP 145/75
[2019-10-15] MEDS ORDERED: ASPIRIN 325 MG TAB PO ONE (16:32)
[2019-10-15 16:54] LABS: Basophils % (Auto) 0.8 % (0.0-1.8); Eosinophils # (Auto) 0.2 K/mm3 (0.0-0.4); Eosinophils % (Auto) 4.9 % (0.0-4.3); Hematocrit 34.1 % (35.5-45.6); Hemoglobin 11.8 gm/dl (11.8-15.2); Lymphocytes # (Auto) 1.5 K/mm3 (1.2-5.4); Lymphocytes % (Auto) 40.5 % (13.4-35.0); Mean Corpuscular HGB Conc 35 % (32-34); Mean Corpuscular Volume 93 fl (84-94); Monocytes # (Auto) 0.5 K/mm3 (0.0-0.8); Monocytes % (Auto) 12.7 % (0.0-7.3); Platelet Count 312 K/mm3 (140-440); Red Blood Count 3.67 M/mm3 (3.65-5.03); Red Cell Distribution Width 12.7 % (13.2-15.2)
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
[2019-10-15 17:14] LABS: BUN/Creatinine Ratio 19; Blood Urea Nitrogen 21 mg/dL (9-20); Calcium 9.5 mg/dL (8.4-10.2); Hemolysis Index 15
--- NOTE | 2019-10-15 17:25 | XRay Report ---
CHEST 1 VIEW INDICATION / CLINICAL INFORMATION: Chest Pain. COMPARISON: None available. FINDINGS: SUPPORT DEVICES: None. HEART / MEDIASTINUM: No significant abnormality. LUNGS / PLEURA: No significant pulmonary or pleural abnormality. No pneumothorax. ADDITIONAL FINDINGS: No significant additional findings. IMPRESSION: 1. No acute findings. Signer Name: Reji Glynn MD Signed: 10/15/2019 5:21 PM Workstation Name: [id number]
--- NOTE | 2019-10-15 19:20 | Cat Scan Report ---
CTA CHEST WITH IV CONTRAST INDICATION: Chest pain. Shortness of breath. TECHNIQUE: Axial CT images were obtained through the chest after injection of IV contrast. Coronal oblique 2-D reconstruction images were produced. 3 plane MIP reconstruction images were produced at an [employer] workstation. All CTs at this facility utilize dose reduction techniques including automated expos ure control, iterative reconstruction and weight based dosing when appropriate to reduce patient radi ation dose to as low as reasonable achievable. COMPARISON: Chest radiograph, 10/15/2019 FINDINGS: Evaluation of the pulmonary arteries demonstrates no evidence of central or segmental filling defect to suggest pulmonary embolism. The heart is normal in size. The thoracic aorta is normal in course an d caliber. Evaluation of the lung parenchyma demonstrates no focal airspace disease or pleural effusi on. Limited imaging of the upper abdomen demonstrates no evidence of acute abnormality. Evaluation of bon y structures demonstrates no evidence of acute bony abnormality. IMPRESSION: 1. No evidence of pulmonary embolism or acute parenchymal process. Signer Name: Laura Walls MD Signed: 10/15/2019 7:15 PM Workstation Name: [id number]
== END 2019-10-15 20:06 | disposition home or self-care (01) ==
LOC: ED 16:17
DX: R60.9 Edema, unspecified (principal); R06.00 Dyspnea, unspecified; I10 Essential (primary) hypertension; E11.9 Type 2 diabetes mellitus without complications; F41.9 Anxiety disorder, unspecified; F32.89 Other specified depressive episodes; F17.200 Nicotine dependence, unspecified, uncomplicated; J45.909 Unspecified asthma, uncomplicated; Z88.6 Allergy status to analgesic agent
CPT/HCPCS: 36415; 71045; 71275; 80048; 83880; 84484; 85025; 93005; 93010; 99285; Q9967

== ENCOUNTER 2019-10-28 21:53 | Emergency (ER) | payer MEDICAID ==
[2019-10-28 22:55] LABS: Hematocrit 35.9 % (35.5-45.6); Hemoglobin 12.5 gm/dl (11.8-15.2); Mean Corpuscular HGB Conc 35 % (32-34); Mean Corpuscular Volume 93 fl (84-94); Platelet Count 305 K/mm3 (140-440); Red Blood Count 3.87 M/mm3 (3.65-5.03); Red Cell Distribution Width 12.9 % (13.2-15.2)
[2019-10-28 23:15] LABS: Alanine Aminotransferase 23 units/L (7-56); Albumin 4.7 g/dL (3.9-5); BUN/Creatinine Ratio 13; Blood Urea Nitrogen 14 mg/dL (9-20); Calcium 9.8 mg/dL (8.4-10.2); Hemolysis Index 19
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
[2019-10-29 00:06] LABS: Bilirubin,Urine NEG (Negative); Blood,Urine NEG (Negative); Color,Urine Straw (Yellow); Protein,Urine <15 mg/dL mg/dL (Negative); Urobilinogen,Urine < 2.0 mg/dL (<2.0)
--- NOTE | 2019-10-29 00:25 | XRay Report ---
ACUTE ABDOMEN SERIES 3 VIEWS 6831 INDICATION: abd distention COMPARISON: Chest x-ray 10/15/2019 FINDINGS: Lung suazo appear clear. No pneumoperitoneum is noted. Mild gaseous distention of nondilat ed colon is seen. Moderate amount of stool is seen in the right colon suggesting constipation. I do n ot see convincing evidence of bowel obstruction. Calcifications of the pelvis thought unlikely to be urologic though some are indeterminate. Signer Name: Mikhail Brannon MD Signed: 10/29/2019 12:21 AM Workstation Name: [id number]
--- NOTE | 2019-10-29 01:13 | Cat Scan Report ---
CT ABDOMEN AND PELVIS WITH CONTRAST INDICATION: Abdominal distention CONTRAST: 100 cc Omnipaque 300 IV COMPARISON: None available. All CT scans at this location are performed using CT dose reduction for ALARA by means of automated e xposure control. FINDINGS: Bibasilar atelectatic changes are noted. No areas of consolidation are seen. No pneumoperit oneum is seen. No significant abdominal wall herniation is noted. Fatty attrition of the liver is see n. Liver is mildly enlarged and has a length of 19.1 cm. No focal lesions are obvious. Gallbladder is mildly contracted but shows no obvious acute change or calculi. No biliary dilatation is noted. I se e no abnormalities of the spleen, pancreas, adrenals, or kidneys. No urinary obstructive changes are seen. No lymphadenopathy is noted. No free fluid is seen. No evidence of bowel obstruction is noted. Moderate amount of stool is seen in nondilated right colon. No focal inflammatory changes are seen. A ppendix appears within normal limits in size with no obvious inflammation though contains a small león unt of high density material and/or calcifications. IMPRESSION: Evidence of right-sided constipation Signer Name: Mikhail Brannon MD Signed: 10/29/2019 1:09 AM Workstation Name: [email or web address]
[2019-10-29] MEDS ORDERED: FLEET ENEMA PR ONE (01:23)
[2019-10-29 03:00] VITALS: BP 142/87
[2019-10-29 03:07] LABS: Basophils % (Manual) 0 % (0.0-1.8); Platelet Estimate Consistent w Auto; Total Cells Counted 100
== END 2019-10-29 03:00 | disposition home or self-care (01) ==
LOC: ED 21:53
DX: K59.00 Constipation, unspecified (principal)
CPT/HCPCS: 36415; 74022; 74177; 80053; 81001; 83690; 85007; 85025; 99284; Q9967

== ENCOUNTER 2020-10-13 12:09 | Emergency (ER) | payer MEDICAID ==
--- NOTE | 2020-10-13 14:38 | Event Note ---
ED Screening Note Date of service: 10/13/20 Time: 14:37 ED Screening Note: 65-year-old male with a past medical history of diabetes, hypertension, hyperlipidemia, histoplasmosis, depression/bipolar disorder presents to the ER today with complaints of sore throat, difficulty swallowing, generalized body aches, and shortness of breath and worsening of his chronic right-sided pain. Patient states that his symptoms started yesterday. He states that he took a second dose of his pfizer vaccine 2 days ago. Patient is tachycardic with a heart rate of 126, mildly hypoxic with a O2 sat of 92% This initial assessment/diagnostic orders/clinical plan/treatment(s) is/are subject to change based on patients health status, clinical progression and re- assessment by fellow clinical providers in the ED. Further treatment and workup at subsequent clinical providers discretion. Patient/guardian urged not to elope from the ED as their condition may be serious if not clinically assessed and managed. Initial orders include: labs/cxr/rapid strep
--- NOTE | 2020-10-13 15:07 | XRay Report ---
XR chest routine 2V INDICATION / CLINICAL INFORMATION: Chest Pain. COMPARISON: 10/28/2019. FINDINGS: SUPPORT DEVICES: None. HEART /PULMONARY VASCULATURE: No significant abnormality. LUNGS / PLEURA: Mild left basilar opacity. Right lung is essentially clear. No pleural effusion. No p neumothorax. ADDITIONAL FINDINGS: No significant additional findings. IMPRESSION: Mild asymmetric left basilar airspace opacity, may reflect atelectasis or developing infiltrate. Signer Name: Anatoly Curry MD Signed: 10/13/2020 3:03 PM Workstation Name: [id number]
[2020-10-13 15:24] LABS: Bilirubin,Urine NEG (Negative); Blood,Urine NEG (Negative); Color,Urine Yellow (Yellow); Mucus,Urine FEW /HPF; Urobilinogen,Urine < 2.0 mg/dL (<2.0); WBC,Urine < 1.0 /HPF (0.0-6.0)
[2020-10-13 15:49] LABS: Basophils % (Auto) 0.5 % (0.0-1.8); Eosinophils % (Auto) 0.3 % (0.0-4.3); Hematocrit 37.2 % (35.5-45.6); Hemoglobin 12.7 gm/dl (11.8-15.2); Lymphocytes # (Auto) 1.6 K/mm3 (1.2-5.4); Lymphocytes % (Auto) 21.2 % (13.4-35.0); Mean Corpuscular HGB Conc 34 % (32-34); Mean Corpuscular Volume 94 fl (84-94); Monocytes # (Auto) 0.7 K/mm3 (0.0-0.8); Monocytes % (Auto) 9.8 % (0.0-7.3); Platelet Count 286 K/mm3 (140-440); Red Blood Count 3.97 M/mm3 (3.65-5.03); Red Cell Distribution Width 12.1 % (13.2-15.2)
[2020-10-13 16:47] LABS: Alanine Aminotransferase 24 units/L (7-56); Albumin 4.1 g/dL (3.9-5); BUN/Creatinine Ratio 17; Blood Urea Nitrogen 24 mg/dL (9-20); Calcium 9.9 mg/dL (8.4-10.2); Hemolysis Index 7
--- NOTE | 2020-10-13 17:42 | Electrocardiograph Report ---
[facility] Test Date: 2020-10-13 Test Time: 14:55:14 Pat Name: REJI ROTHMAN Department: Room: Gender: M [employer]ight [employer]ter: FIDEL : 1955 Requested By: GUI MARLEY Order Number: [id number] Reading MD: Christine Auguste Measurements Intervals [place] Rate: 104 P: 73 TN: 144 QRS: 57 QRSD: 87 T: 7 QT: 321 QTc: 423 Interpretive Statements Sinus tachycardia Probable left atrial enlargement No previous ECG available for comparison Electronically Signed On 10-13-2020 17:41:56 EDT by Christine Auguste
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
--- NOTE | 2020-10-14 00:43 | Cat Scan Report ---
CT NECK WITH INTRAVENOUS CONTRAST AND MULTIPLANAR RECONSTRUCTION CLINICAL HISTORY: Patient complains of difficulty swallowing and sore throat. TECHNIQUE: 2.5 mm thick contiguous axial scans were obtained from the skull base down to the aortic arch during intravenous contrast administration. In addition to evaluation of axial source images sagittal and co eddie multiplanar reconstructions were produced and reviewed for this report. Contrast dose report: Omnipaque 300: 100 ML administered intravenously All CT imaging studies performed at this facility utilize dose modulation, iterative reconstruction o r weight based dosing, if appropriate, to obtain the lowest achievable radiation dose. FINDINGS: AIRWAY: Increased prevertebral soft tissue fullness seen in the posterior nasopharynx likely due to e nlargement of adenoidal tissue. [place] tonsils are prominent bilaterally. Lingual tonsils also appe ar to be enlarged. No additional abnormalities are seen along the course of the airway. Nasopharynx, oropharynx, hypopharynx, larynx and visualized portions of the subglottic airway all have an unremark able appearance. No evidence of tonsillar or parapharyngeal abscess is observed. LYMPH NODES: Multiple cervical lymph nodes are identified. These lymph nodes are all within normal li mits for size. There are oval in shape and most contain a normal fatty hilum. No indication of pathol ogical lymphadenopathy is observed. ORAL CAVITY/FLOOR OF MOUTH: No abnormalities are seen in evaluation of the oral cavity and tongue. Th e floor the mouth has a normal appearance. MAJOR SALIVARY GLANDS: The parotid and submandibular salivary glands have a normal appearance. NASAL CAVITY AND PARANASAL SINUSES: Evaluation of the nasal cavity reveals no abnormality. The parana enrico sinuses are free from inflammatory mucosal disease. ORBITS:No abnormalities of the visualized portions of the orbits are identified. Globes, optic nerves , extraocular muscles and lacrimal glands have an unremarkable appearance. THYROID GLAND: The thyroid gland is normal in size and homogeneous in attenuation. No focal thyroid l esions are identified. TEMPORAL BONES:Mastoid air cells are normally pneumatized. CERVICAL SPINE: Evaluation of the cervical spine reveals no significant abnormality. Normal alignment is maintained. No significant degenerative changes are identified. LUNG APICES: Evaluation of the lung apices reveals no abnormality. There is no indication of lung nod ule or infiltrate. The visualized portions of the superior mediastinum have an unremarkable appearanc e. CONTRAST ADMINISTRATION: Enhancement of normal vascular structures is demonstrated. No areas of abnor mal contrast enhancement are identified. IMPRESSION: 1. Prominent adenoidal and tonsillar tissue as described above. 2. Multifocal cervical lymph nodes likely represent reactive lymph nodes. No indication of pathologic al lymphadenopathy. 3. No indication of tonsillar or or pharyngeal abscess. Signer Name: Rick Salamanca MD Signed: 10/14/2020 12:39 AM Workstation Name: [id number]
[2020-10-14 00:52] VITALS: BP 149/93
== END 2020-10-14 00:59 | disposition home or self-care (01) ==
LOC: ED 12:09
DX: J02.9 Acute pharyngitis, unspecified (principal); I10 Essential (primary) hypertension; E11.9 Type 2 diabetes mellitus without complications; F41.9 Anxiety disorder, unspecified; F32.9 Major depressive disorder, single episode, unspecified; Z98.890 Other specified postprocedural states; Z79.84 Long term (current) use of oral hypoglycemic drugs; Z79.899 Other long term (current) drug therapy; Z88.8 Allergy status to other drugs, medicaments and biological substances
CPT/HCPCS: 36415; 70491; 71046; 80053; 81001; 83690; 83880; 84484; 85025; 87116; 87430; 93005; 99284; Q9967